=== PATIENT | female | born 1935 | race Caucasian/White ===

== ENCOUNTER → 2018-10-17 09:59 | Outpatient (CLI) | payer MEDICARE ==
[2014-12-11 12:42] VITALS: BMI 29.2
[~2018-10-17 09:59] MED LIST: ABILIFY2 MG PO; AGRYLIN0.5 MG PO; CYMBALTA60 MG PO; INDERAL10 MG PO; MIRAPEX0.5 MG PO; NEURONTIN 300300 MG PO; PLAVIX75 MG PO; PREVACID15 MG PO; TRAZODONE HCL150 MG PO; VESICARE10 MG PO; ZOCOR20 MG PO; [UNRECOGNIZED DRUG - REMARK] PO
== END | disposition home or self-care (01) ==
LOC: D.RAD 09:59
DX: M25.552 Pain in left hip (principal)